=== PATIENT | female | born 1965 | race Caucasian/White ===

== ENCOUNTER 2017-02-21 19:11 | Emergency (ER) | payer SELFPAY ==
[~2017-02-21] VITALS: Ht 175.3 cm; Wt 119.7 kg
[~2017-02-21 19:11] MED LIST: ALPRAZOLAM1 MG PO; CYMBALTA60 MG PO; METOPROLOL TART25 MG PO; OMEPRAZOLE20 M1 PO; TRAZODONE HCL100 MG PO; ULTRAM50 MG PO
== END 2017-02-22 00:43 | disposition home or self-care (01) ==
LOC: ER 19:11
DX: R68.84 Jaw pain (principal); F17.210 Nicotine dependence, cigarettes, uncomplicated; M26.621 Arthralgia of right temporomandibular joint
CPT/HCPCS: 99282